=== PATIENT | female | born 1960 | race Caucasian/White ===

== ENCOUNTER → 2024-12-24 | Outpatient (REF) | payer OTHER | LOC: MAMMO 10:40 | PROVIDERS: ATTEND Family Medicine | DX: Z12.31 Encounter for screening mammogram for malignant neoplasm of breast (principal) | CPT/HCPCS: 77067 ==

== ENCOUNTER → 2025-01-28 | Outpatient (REF) | payer OTHER | LOC: US 09:04 | PROVIDERS: ATTEND Obstetrics & Gynecology | DX: R92.30 Dense breasts, unspecified (principal) ==